=== PATIENT | female | born 2005 | race Caucasian/White ===

== ENCOUNTER 2024-09-16 13:26 | Outpatient (CLI) | payer OTHER ==
[~2024-09-16 13:26] MED LIST: CHILDREN'S100 MG/52 PO; GUAIF-DM-PSE S120 ML PO; TYLENOL32 MG/ML PO
== END 2024-09-16 13:33 | disposition home or self-care (01) ==
LOC: MRI 13:26
PROVIDERS: ATTEND General Practice
DX: M54.12 Radiculopathy, cervical region (principal)
CPT/HCPCS: 72141